=== PATIENT | female | born 1955 | race Caucasian/White ===

== ENCOUNTER 2019-03-28 22:59 | Emergency (ER) | payer OTHER ==
[~2019-03-28] VITALS: Ht 147.3 cm; Wt 59.0 kg
[2019-03-29] MEDS ORDERED: ONDANSETRON ODT4 MG SL (08:00)
[2019-03-29] MEDS ORDERED: PROTONIX40 MG PO (08:00)
[2019-03-29] MEDS ORDERED: ZANTAC300 MG PO (08:00)
== END 2019-03-29 08:43 | disposition home or self-care (01) ==
LOC: ER 22:59
DX: K29.60 Other gastritis without bleeding (principal)